=== PATIENT | male | born 1985 | race Caucasian/White ===

== ENCOUNTER 2017-12-01 08:34 | Outpatient (CLI) | payer BC ==
--- NOTE | 2017-12-01 12:03 | MRI ---
MRI LEFT FOOT WITH AND WITHOUT CONTRAST: Date: 12/01/17 HISTORY: Pain. COMPARISON: Foot radiograph dated 10/18/17. FINDINGS: Bones: Marrow signal is normal. No extrinsic mass effect. No marrow edema. Muscles: Muscle signal and bulk normal. Tendons: On the superficial aspect of the extensor hallucis longus tendon, not involving the actual tendon its elf but superficial portion of it and involving the superficial soft tissues, is a T2 hypointense/T1 hypointense nodule extending into the subcutaneous fat, which measures 8.0 mm in transverse dimension x 1.0 cm in AP dimension. This has T1 and T2 signal hypointensity with some low grade enhancement. The remainder of the extensor and flexor tendons are normal. 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 This does not involve the actual tendon itself. No extrinsic mass effect upon the bone . Clinical follow-up recommended. This does appear to abut the skin surface. POS: [facility]O
[2017-12-01] MEDS ORDERED: Gadobenate Dimeglumine 529 MG/1 ML (20ML VIAL) ONE (12:55)
== END 2017-12-01 08:35 | disposition home or self-care (01) ==
LOC: MRI 08:34
PROVIDERS: ATTEND Podiatrist
DX: R22.42 Localized swelling, mass and lump, left lower limb (principal); M79.672 Pain in left foot
CPT/HCPCS: A9579

== ENCOUNTER 2018-03-29 07:09 | Outpatient (CLI) | payer BC ==
[2018-03-29 07:49] LABS: ALT (SGPT) 87 U/L (8-55); AST (SGOT) 39 U/L (5-34); Albumin 4.4 g/dL (3.5-5.0); Alkaline Phosphatase 94 U/L (40-150); Anion Gap 14 mmol/L (10-20); BUN (Urea Nitrogen) 15 mg/dL (8.9-20.6); Bilirubin, Total 0.4 mg/dL (0.2-1.2); Calc. Creatinine Clearance 0 mL/min (70-130); Calcium 9.8 mg/dL (7.8-10.44); Carbon Dioxide 27 mmol/L (22-29); Chloride 106 mmol/L (98-107); Cholesterol 145 mg/dl (< 200 Desired); Estimated GFR-MDRD Greater than 90; Globulin 2.8 g/dL (2.4-3.5); Glucose 104 mg/dL (70-105); HDL Cholesterol 36 mg/dL (>60 Neg Risk); LDL Cholesterol, Calculated 87 mg/dL; Potassium 4.6 mmol/L (3.5-5.1); Protein, Total 7.2 g/dL (6.0-8.3); Sodium 142 mmol/L (136-145); Triglycerides 111 mg/dL (Less than 150)
== END 2018-03-29 07:10 ==
LOC: LAB 07:09
PROVIDERS: ATTEND Family Medicine
DX: E78.2 Mixed hyperlipidemia (principal); R68.89 Other general symptoms and signs
CPT/HCPCS: 36415; 80053; 80061

== ENCOUNTER 2024-11-29 08:58 | Outpatient (CLI) | payer BC ==
[2024-11-29 09:43] LABS: #Basophils 0.05 10x3/uL (0.0-0.2); #Eosinophils 0.11 10x3/uL (0.0-0.7); #Monocytes 0.59 10x3/uL (0.11-0.59); #Neutrophils 3.17 10x3/uL (1.40-6.50); %Basophils 0.7 % (0.0-1.0); %Eosinophils 1.6 % (0.0-10.0); %Lymphocytes 41.0 % (21.0-51.0); %Monocytes 8.8 % (0.0-10.0); %Neutrophils 47.6 % (42.0-75.0); Hematocrit 41.6 % (42.0-52.0); Hemoglobin 14.2 g/dL (14.0-18.0); Mean Corpuscular Hemoglobin 28.9 pg (27.0-31.0); Mean Corpuscular Volume 84.7 fL (78.0-98.0); Platelet Count 259 10x3/uL (130-400); Red Blood Cell (RBC) Count 4.91 mill/uL (4.70-6.10); White Blood Cell (WBC) Count 6.68 10x3/uL (4.8-10.8)
[2024-11-29 09:55] LABS: Anion Gap 14 mmol/L (10-20); BUN (Urea Nitrogen) 14 mg/dL (8.9-20.6); Calc. Creatinine Clearance 0 mL/min (70-130); Calcium 9.3 mg/dL (7.8-10.44); Carbon Dioxide 22 mmol/L (22-29); Chloride 110 mmol/L (98-107); Glucose 103 mg/dL (70-105); Potassium 4.4 mmol/L (3.5-5.1); Sodium 142 mmol/L (136-145)
== END 2024-11-29 08:59 | disposition home or self-care (01) ==
LOC: LABBT 08:58
PROVIDERS: ATTEND Orthopaedic Surgery
DX: Z01.818 Encounter for other preprocedural examination (principal); M94.8X6 Other specified disorders of cartilage, lower leg
CPT/HCPCS: 80048; 85025; 93005; 93010

== ENCOUNTER 2024-12-01 06:26 | Day surgery (SDC) | payer BC ==
[2024-11-29 09:07] VITALS: BMI 38.0
[2024-12-01] MEDS ORDERED: Vancomycin HCl 1.5 GM VIAL ONE (07:30)
[2024-12-01] MEDS ORDERED: Bupivacaine 0.25% HCL 30 ML VIAL ONE (07:53)
[2024-12-01] MEDS ORDERED: Lidocaine 1% (PF) 30 ML VIAL ONE (07:53)
[2024-12-01] MEDS ORDERED: Ondansetron PF 4 MG/2 ML Vial IVP PRN (08:00)
[2024-12-01] MEDS ORDERED: Ropivacaine 0.2% 550 ML 550 ML NERVE BLCK SCH (08:00)
[2024-12-01] MEDS ORDERED: HYDROcodone/Acetaminophen 5/325 mg Tablet PO PRN ×2 (08:00)
[2024-12-01] MEDS ORDERED: PROPOFOL 20 ML ONE (09:46)
[2024-12-01] MEDS ORDERED: fentaNYL PF 100 MCG/2 ML SYRINGE ONE ×3 (09:46→12:28)
[2024-12-01] MEDS ORDERED: CEFAZOLIN 1 GM VIAL ONE (10:09)
[2024-12-01] MEDS ORDERED: Ondansetron PF 4 MG/2 ML Vial ONE (11:12)
[2024-12-01] MEDS ORDERED: PHENYLEPHRINE-NS 100 MCG/ML 10 ML SYRINGE ONE (11:12)
[2024-12-01] MEDS ORDERED: HYDROmorphone 0.5 MG/0.5 ML SYRINGE ONE (12:16)
[2024-12-01] MEDS ORDERED: HYDROcodone/Acetaminophen 5/325 mg Tablet ONE (14:16)
== END 2024-12-01 14:52 | disposition home or self-care (01) ==
LOC: SDC 06:26
PROVIDERS: ATTEND Orthopaedic Surgery
PROC: 0SUD0KZ Supplement Left Knee Joint with Nonautologous Tissue Substitute, Open Approach (ICD-10-PCS; principal; 2024-12-01)
DX: M93.262 Osteochondritis dissecans, left knee (principal); I10 Essential (primary) hypertension; E78.5 Hyperlipidemia, unspecified; G47.33 Obstructive sleep apnea (adult) (pediatric)
CPT/HCPCS: A4306; C1889; C2613; J0665; J0690; J1100; J1171; J2250; J2704; J2795; J3490